=== PATIENT | male | born 1975 | race Caucasian/White ===

== ENCOUNTER 2023-02-09 00:10 | Emergency (ER) | payer OTHER ==
[~2023-02-09] VITALS: Ht 167.6 cm; Wt 72.6 kg
[2023-02-09 00:25] VITALS: BP 121/80; PULSE 70; RESP 18; TEMP 97.4; O2SAT 99
[2023-02-09] MEDS ORDERED: ONDANSETRON 4 MG ODT PO ONE (00:45)
[2023-02-09 01:13] LABS: BASOPHILS # (AUTO) 0.1 K/uL (0.00-0.22); EOSINOPHILS # (AUTO) 1.6 K/uL (0-0.4); EOSINOPHILS % (AUTO) 13.3 % (0.0-4.0); HEMATOCRIT 44.6 % (36-52); HEMOGLOBIN 14.6 g/dL (12.0-18.0); LYMPHOCYTES # (AUTO) 3.9 K/uL (2.0-11.5); LYMPHOCYTES % (AUTO) 33.4 % (20.5-51.1); MEAN CORPUSCULAR HEMOGLOBIN 29 pg (27-31); MEAN CORPUSCULAR HGB CONC 33 g/dL (33-37); MEAN CORPUSCULAR VOLUME 87.1 fL (80-94); MONOCYTES # (AUTO) 0.9 K/uL (0.8-1.0); MONOCYTES % (AUTO) 7.7 % (1.7-9.3); NEUTROPHILS # (AUTO) 5.2 K/uL (1.8-7.7); NEUTROPHILS % (AUTO) 44.6 % (42.2-75.2); PLATELET COUNT (AUTO) 360 K/uL (140-450); RED BLOOD CELL COUNT(AUTO) 5.12 MIL/uL (4.20-6.10); RED CELL DISTRIBUTION WIDTH 14.8 % (11.6-13.7); WHITE BLOOD COUNT (AUTO) 11.7 K/uL (4.8-10.8)
[2023-02-09 01:30] LABS: ANION GAP 10.9 (8-16); CALCIUM 8.5 mg/dL (8.5-10.1); CARBON DIOXIDE 25.9 mmol/L (21-32); CREATININE 0.9 mg/dL (0.6-1.3); POTASSIUM 3.8 mmol/L (3.5-5.1)
[2023-02-09] MEDS ORDERED: ONDA-188 SL (01:41)
[2023-02-09] MEDS ORDERED: MECL-303 PO (01:42)
[2023-02-09 01:48] VITALS: BP 121/80; PULSE 70; RESP 18; TEMP 97.4; O2SAT 99
== END 2023-02-09 01:48 | disposition home or self-care (01) ==
LOC: MED 00:10
DX: H93.13 Tinnitus, bilateral (principal); R42 Dizziness and giddiness; R11.0 Nausea; Z98.890 Other specified postprocedural states; Z79.899 Other long term (current) drug therapy
CPT/HCPCS: 36415; 80048; 85025; 99283; Q0162